=== PATIENT | female | born 1980 | race Caucasian/White ===

== ENCOUNTER 2022-05-17 14:30 | Emergency (ER) | payer OTHER, SELFPAY ==
--- NOTE | ~2022-05-17 | XR_ITS ---
EXAM: XR foot RT min 3V DATE: 05/17/2022 14:52 HISTORY: right lateral foot pain. no injury . COMPARISON: None available. FINDINGS: Normal mineralization. No fracture or dislocation. No lytic or blastic lesion. Joint space s are maintained. No erosion or periosteal change. Soft tissues within normal limits. IMPRESSION: No acute osseous finding in the right foot. Reviewed, dictated and finalized at location K.
--- NOTE | 2022-05-17 14:39 | ED.EXTPRO ---
HPI - Extremity Problem General Chief complaint: Extremity Problem,Nontraumatic Stated complaint: request xray on right foot Time Seen by Provider: 05/17/22 14:40 Source: patient and RN notes reviewed Mode of arrival: ambulatory Limitations: no limitations History of Present Illness HPI Narrative: 41-year-old female presents to the [facility] with complaints of right lateral foot pain for over a year. Had recently seen a nitroglycerin neutralizer, received cortisone shot February 2022. States she had several weeks of pain relief. States that she was offered an MRI but they wanted to try the cortisone shot first. States she can only wear sandals or flip-flops because sneakers make her feet hurt. No bruising or swelling noted. Denies any trauma. Positive pedal pulse. Capillary refill under 2 seconds. Full range of motion of the toes. Pain with walking to the lateral aspect along the fifth metatarsal Onset (ago): month(s) Related Data Home Medications Medication Instructions Recorded Confirmed desogestrel 0.15 mg-ethinyl 1 tablet PO DAILY 05/17/22 05/17/22 estradiol 0.03 mg tablet omeprazole 40 mg capsule,delayed 40 mg PO DAILY 05/17/22 05/17/22 release venlafaxine 75 mg capsule,extended 75 mg PO DAILY 05/17/22 05/17/22 release 24 hr Allergies Allergy/AdvReac Type Severity Reaction Status Date / Time No Known Allergies Allergy Unverified 05/17/22 14:53 Review of Systems Review of Systems: All systems reviewed & are unremarkable except as noted in HPI and below Constitutional: Constitutional: Reports no additional constitutional complaints, Denies chills and Denies fever(s) Eyes: Eyes: Reports no additional eye complaints ENT: Reports system reviewed and no additional complaints, except as documented Cardiovascular: Cardiovascular: Reports no additional cardiovascular complaints Respiratory: Respiratory: Reports no additional respiratory complaints Gastrointestinal: Gastrointestinal: Reports no additional gastrointestinal complaints Musculoskeletal: Musculoskeletal: Reports as per HPI (Right lateral foot pain) Integumentary/Breasts: Skin/Breast: Reports system reviewed and no additional complaints, except as docu Neurologic: Reports system reviewed and no additional complaints, except as documented Psychiatric: Psychiatric: Reports no additional psychiatric complaints Allergic/Immunologic: Allergic/Immunologic: Reports no additional allergic/immunologic complaints [facility] Past Medical History Medical History (Updated 05/17/22 @ 15:10 by Patt Callejas APRN) Anxiety and depression H/O gastroesophageal reflux (GERD) Social History Social History (Updated 05/17/22 @ 15:11 by Patt Callejas APRN) Living arrangements: with family Occupation/Education: occupation Additional occupation/education comments: Teacher Gender identity (if verbalized by the patient): Female Comments At the time of my signature, I reviewed and agree with the nursing past medical, surgical, social, and family history. There is no relevant family history pertinent to the patient complaint. Exam Const: General: healthy appearing, no acute distress and alert Nutritional Appearance: well nourished Orientation/consciousness: patient oriented x3 Limitations: no limitations HENMT: Head: normal to inspection Ears: external ears normal General nose exam: Normal external nose present Mouth: Yes Normal oral and palatal mucosa present and Yes lip normal Eyes: General: appearance normal, both eyes and all related structures Pupils: Equal, round and reactive pupils present Neck: Neck: normal visual inspection, no lymphadenopathy and no meningeal signs Chest: Chest palpation & inspection: normal inspection of the chest Resp: Effort & Inspection: normal respiratory effort and no use of accessory muscles Auscultation: clear to auscultation bilaterally Cardio: Rate: regular rate Rhythm: regular rhythm Back/Spine/Pelvis: Cervical
[2022-05-17 14:45] VITALS: BP 131/97; PULSE 99; RESP 16; TEMP 37.2; O2SAT 99
== END 2022-05-17 15:09 | disposition home or self-care (01) ==
PROVIDERS: Emergency Provider Nurse Practitioner; PCP Internal Medicine
DX: M79.671 Pain in right foot (principal); K21.9 Gastro-esophageal reflux disease without esophagitis; F41.9 Anxiety disorder, unspecified; F32.A Depression, unspecified
CPT/HCPCS: 73630; 99203; G0463

== ENCOUNTER 2024-01-27 19:45 | Emergency (ER) | payer OTHER, SELFPAY ==
[2024-01-27 20:05] VITALS: BP 126/81; PULSE 82; RESP 18; TEMP 37.2; O2SAT 98
--- NOTE | 2024-01-27 20:08 | ED.URI ---
HPI - URI/Sore Throat General Chief Complaint: Upper Respiratory Infection Stated Complaint: Sore Throat Time Seen by Provider: 01/27/24 20:08 Source: patient Mode of arrival: ambulatory Limitations: no limitations History of Present Illness HPI Narrative: 43-year-old female presents with complaint of nasal congestion, postnasal drainage, sore throat for 5 days. Afebrile. Patient concerned for strep throat but states throat is normally worse with fever when she has strep. Does not understand why her throat hurts. Sore throat is worse in the morning a and at night. Reports hacking of drainage in the mornings. Not taking any furw-erb-mtyklap medications to treat her symptoms. All systems reviewed and negative except as noted above. Related Data Home Medications Medication Instructions Recorded Confirmed omeprazole 40 mg capsule,delayed 40 mg PO DAILY 05/17/22 01/27/24 release venlafaxine 75 mg capsule,extended 75 mg PO DAILY 05/17/22 01/27/24 release 24 hr Allergies Allergy/AdvReac Type Severity Reaction Status Date / Time No Known Allergies Allergy Verified 01/27/24 19:51 Review of Systems Review of Systems: CONSTITUTIONAL: Denies fever, chills, or sweats. EYES: Denies visual changes, redness, or discharge. ENT: Reports rhinorrhea, congestion, sore throat. Denies otalgia. CARDIOVASCULAR: Denies chest pain, palpitations, or edema. RESPIRATORY: Denies cough or dyspnea. GASTROINTESTINAL: Denies abdominal pain, nausea, vomiting, or diarrhea. GENITOURINARY: Denies dysuria or hematuria. SKIN: Denies rash or itching. MUSCULOSKELETAL: Denies back pain, joint pain, or myalgia. NEUROLOGIC: Denies headache, numbness, or weakness. PSYCHIATRIC: Denies anxiety or depression. All other systems reviewed are negative, except as documented in HPI. [facility] Past Medical History Medical History Anxiety Anxiety and depression GERD (gastroesophageal reflux disease) History of abnormal cervical Papanicolaou smear Surgical History Surgical History History of colposcopy History of cryosurgery Family History Family History Other Asthma Cerebrovascular accident Diabetes mellitus Social History Social History Smoking status: Never smoker Alcohol intake: never Substance use: never Substance use type: does not use Lack of Transportation: No Lack of Food: Never True Current Housing: I Have Housing Concerned About Future Housing: No Difficulty Paying Gas/Electric Bills: No Difficulty Paying for Meds: No Currently Unemployed: No Education: Bachelor's Degree Living arrangements: with family Occupation/Education: occupation Additional occupation/education comments: Teacher Gender identity (if verbalized by the patient): Female Comments At time of signature, agree with nursing past medical, surgical, social and family history. There is no relevant family history pertinent to the presenting complaint. Exam Narrative: GENERAL: This is a well-nourished, well-developed patient, in no apparent distress. HEAD: normocephalic, atraumatic. EYES: PERRL. Sclera clear/white. Vision is grossly intact. EARS: External ears normal, auditory canals clear and without drainage, clear fluid bilateral TMs without Erythema or perforation. Hearing grossly intact. NOSE: External nose normal with mild nasal congestion with clear postnasal drainage. THROAT: Mucous membranes moist, Clear postnasal drainage with mild erythema. No swelling or exudates. NECK: Neck supple, non-tender without lymphadenopathy, masses or thyromegaly. CARDIOVASCULAR: Regular rate and rhythm without murmurs, gallops, or rubs. RESPIRATORY: Clear to auscultation. Breath sounds equal bilaterally. No wheezes,
== END 2024-01-27 20:20 | disposition home or self-care (01) ==
PROVIDERS: Emergency Provider Nurse Practitioner Family; PCP Internal Medicine
DX: J30.9 Allergic rhinitis, unspecified (principal); K21.9 Gastro-esophageal reflux disease without esophagitis; F41.9 Anxiety disorder, unspecified; F32.A Depression, unspecified
CPT/HCPCS: 87081; 87880; 99213; G0463

== ENCOUNTER 2024-02-02 09:03 | Emergency (ER) | payer OTHER, SELFPAY ==
[2024-02-02 09:24] VITALS: BP 110/91; PULSE 79; RESP 16; TEMP 37.4; O2SAT 99
[2024-02-02 09:27] VITALS: BP 110/91; PULSE 79; RESP 16; TEMP 37.4; O2SAT 99
--- NOTE | 2024-02-02 09:56 | ED.EYEPROB ---
HPI - Eye Problem General Chief complaint: Eye Problems Stated complaint: Eye Problem Time Seen by Provider: 02/02/24 09:42 Source: patient, RN notes reviewed and old records reviewed Mode of arrival: ambulatory Limitations: no limitations History of Present Illness HPI Narrative: 43-year-old female to [facility] complaint bilateral eye discomfort, itching, yellow discharge for 5 days. Patient states she was seen last week at [facility]gent Care and diagnosed with allergies, placed on a steroid pack. 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 Patient any visual changes, fever. Related Data Home Medications Medication Instructions Recorded Confirmed omeprazole 40 mg capsule,delayed 40 mg PO DAILY 05/17/22 02/02/24 release venlafaxine 75 mg capsule,extended 75 mg PO DAILY 05/17/22 02/02/24 release 24 hr Allergies Allergy/AdvReac Type Severity Reaction Status Date / Time No Known Allergies Allergy Verified 01/27/24 19:51 Review of Systems Review of Systems: All systems reviewed & are unremarkable except as noted in HPI and below Constitutional: Constitutional: Reports no additional constitutional complaints Eyes: Eyes: Reports as per HPI, Denies blurry vision, Denies change in vision, Reports eye discharge ( Yellow per patient; bilateral), Reports irritation ( bilateral), Reports itchy eyes ( bilateral) and Reports photophobia ( bilateral) ENT: Reports system reviewed and no additional complaints, except as documented Cardiovascular: Cardiovascular: Reports no additional cardiovascular complaints, Denies chest pain and Denies dyspnea Respiratory: Respiratory: Reports no additional respiratory complaints, Denies cough and Denies dyspnea Musculoskeletal: Musculoskeletal: Reports no additional musculoskeletal complaints Neurologic: Reports system reviewed and no additional complaints, except as documented Psychiatric: Psychiatric: Reports no additional psychiatric complaints [facility] Past Medical History Medical History Anxiety Anxiety and depression GERD (gastroesophageal reflux disease) History of abnormal cervical Papanicolaou smear Surgical History Surgical History History of colposcopy History of cryosurgery Family History Family History Other Asthma Cerebrovascular accident Diabetes mellitus Social History Social History Smoking status: Never smoker Alcohol intake: never Substance use: never Substance use type: does not use Lack of Transportation: No Lack of Food: Never True Current Housing: I Have Housing Concerned About Future Housing: No Difficulty Paying Gas/Electric Bills: No Difficulty Paying for Meds: No Currently Unemployed: No Education: Bachelor's Degree Living arrangements: with family Occupation/Education: occupation Additional occupation/education comments: Teacher Gender identity (if verbalized by the patient): Female Comments At the time of my signature, I reviewed and agree with the nursing past medical, surgical, social, and family history. There is no relevant family history pertinent to the patient complaint. Exam Const: General: cooperative, healthy appearing, comfortable, no acute distress, alert and well nourished Nutritional Appearance: well nourished Orientation/consciousness: patient oriented x3 Limitations: no limitations HENMT: Head: normal to inspection Ears: external ears normal Face/Nose/Sinus: Normal external nose present, Normal nares present, normal facial exam, No erythema and No edema Face and sinus: normal facial exam, no erythema and no edema Mouth: Yes Normal oral and palatal mucosa presen
== END 2024-02-02 10:13 | disposition home or self-care (01) ==
PROVIDERS: Emergency Provider Nurse Practitioner Family; PCP Internal Medicine
DX: H10.9 Unspecified conjunctivitis (principal); K21.9 Gastro-esophageal reflux disease without esophagitis; F41.9 Anxiety disorder, unspecified; F32.A Depression, unspecified
CPT/HCPCS: 99213; G0463

== ENCOUNTER 2025-03-27 12:25 | Outpatient (CLI) | payer OTHER, SELFPAY ==
--- NOTE | ~2025-03-27 | MM_ITS ---
EXAMINATION: MM screening tiffanie BI w meri HISTORY: Screening TECHNIQUE: Craniocaudal and mediolateral oblique 3-D tomosynthesis images were obtained and synthetic 2-D images were generated. CAD analysis was submitted and interpreted. COMPARISON: No prior mammogram is available for comparison at this institution. BREAST PARENCHYMAL COMPOSITION: Dense: The breasts are heterogeneously dense, which may obscure small masses FINDINGS: There is a mass in the upper outer quadrant of the right breast, suspicious for pathologic lymph node. There is a focal asymmetry centrally in the left breast, middle third, on CC view. There is a small mass in the periareolar location of the left breast. IMPRESSION: 1. Bilateral breast masses and focal left breast asymmetry. 2. Comparison to previous outside mammograms recommended. BI-RADS Category 0: Incomplete: Needs additional imaging evaluation. Reviewed, dictated and finalized at location B.
--- OUTSIDE RECORDS SUMMARY | 2025-03-27 14:19 | XMS_ITS | Clinical Summary ---
Author Organization [facility] Address [address] [place] [address] Care Team Providers Care Adjunct Faculty For Medical Terminology Name Role Phone Tigist Bowles MD Primary Care Provider [phone]- [phone] Allergies No known active allergies Medications LORazepam (ATIVAN) 0.5 mg tablet take 1 Tablet by oral route 3 times every day as needed 40 0 6 Active Additional Information Patient not taking.Reported on 07/04/2017 venlafaxine XR (EFFEXOR XR) 75 mg 24 hr capsule take 1 capsule by oral route every day with food 30 11 6 Active omeprazole (PriLOSEC) 40 mg capsule TAKE 1 CAPSULE (40MG) BY ORAL ROUTE EVERY DAY BEFORE A MEAL 30 11 2 Active multivitamin capsule take 1 capsule by oral route every day 0 1 Active Additional Information Patient not taking.Reported on 03/15/2018 desogestrel-eth inyl estradiol (RECLIPSEN, 28,) 0.15-0.03 mg per tablet take 1 tablet by oral route every day 0 1 Active Active Problems Problem Noted Date Diagnosed Date Bronchitis 07/04/2017 Assessment & Plan (07/04/2017 2:29 PM CDT): Recommend humidification fluids and rest. Tylenol/ibuprofen prn fever. Take antibiotic as directed. Albuterol inhaler prn coughing fits, wheezing, chest congestion. Dose, use and potential side effects of medication discussed with patient. Patient verbalized understanding and is in agreement with the plan of care. Patient is to contact the office with any change in, worsening or non- improvement in condition. Gastroesophageal reflux disease 01/01/2016 Overview (01/21/2017): GERD (gastroesophageal reflux disease) Irritable bowel syndrome 07/18/2013 Overview (01/20/2017): IBS (irritable bowel syndrome) Surgical History Surgery Date Site/Laterality Comments OTHER SURGICAL HISTORY 10/17/2015 - 10/16/2016 anxiety : Medical Management Medical History Medical History Date Comments Gastroesophageal reflux disease GERD Anxiety disorder Anxiety Depression Depression Hx Other Medical hx of abnormal pap smears; Comments: ASCUS 1998 Hx Other Medical hx of syncope Hx Other Medical anxiety; Commen ts: ekg chest xray Family History Medical History Relation Name Comments Diabetes type II Father Diabetes me llitus type 2; Hyperlipidemia Father Hyperlipidemi a; living Hypertension Father Hypertension; l iving Migraines Mother Migraines; Other Mother Alive and well; /ibs; Esophageal cancer Mother's Brother Cancer -esophageal; Other Sister 2 Alive and well; Other Sister 3 ibs; Breast cancer Neg Hx Ovarian cancer Neg Hx Thyroid cancer Neg Hx Relation Name Status Comments Father Alive Mother Alive Mother's Brother Sister 1 Alive Sister 2 Sister 3 Social History Tobacco Use Types Packs/Day Years Used Date Smoking Tobacco: Never Smokeless Tobacco: Never Alcohol Use Standard Drinks/Week Comments Yes 0 (1 standard drink = 0.6 oz pur e alcohol) Comments No Sex and Gender Information Value Date Recorded Sex Assigned at Not on file 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 Gender Identity Not on file Sexual Orientation Not on file Obstetrics History Para Term AB IAB SAB Ectopic Multiple Livin g Live Births 3 3 3 Date Outcome GA Total Labor Labor/2nd/3rd Weight Sex Type Anes PTL Irlanda A1 A5 Name Clin Term Term Term Last Filed Vital Signs Vital Sign Reading Time Taken Comments Blood Pressure 106/64 03/15/2018 1:28 PM CDT Pulse 69 03/15/2018 1:28 PM CDT Temperature 36.7 C (98 F) 03/15/2018 1:28 PM CDT Respiratory Rate 16 03/15/2018 1:28 PM CDT Oxygen Saturation 99% 03/15/2018 1:28 PM CDT Inhaled Oxygen Concentration - - Weight 77.1 kg (170 lb) 05/21/2021 2:58 PM CDT Height 167.6 cm (5' 6) 07/07/2022 9:35 AM CDT Body Mass Index 27.44 05/22/2020 9:51 AM CDT Plan of Treatment Health Maintenance Due Date Last Done Comments Cervical Cancer Screening 1978 Colon Cancer Screening-Colonoscopy 1978 Hepatitis C Screening 1978 DTaP/Tdap/Td Vaccine (1 - Tdap) 1989 Hepatitis B Screening 1996 Regular Well Visit/Exam 18-64 1996 Depression Screening 03/15/2019 03/15/2018, 07/04/20 17 Breast Cancer Screening-Mammogram 01/24/2025 01/25/2024, 07/07/2022, 05/21/2021, Additional history exists Influenza Vaccine (Season Ended) 2025 07/02/2020 HPV Vaccines Aged Out No longer eligi ble based on patient's age to complete this topic Pneumococcal vaccine <65 Aged Out No longer eligible based on patient's age to complete this topic Procedures Procedure Name Priority Date/Time Associated Diagnosis Comments SCREENING MAMMOGRAM BILATERAL W ARNOLD Schedule Routine, Read Routine (OP Routine) 01/25/2024 8:49 AM CDT Screening mammogram, encounter for from Last 3 Months or Most Recently Relevant to Health Maintenance Results * Screening Mammogram Bilateral W Arnold (01/25/2024 8:49 AM CDT) Anatomical Region Laterality Modality Breast Bilateral Mammography 01/25/2024 8:57 AM CDT Impressions 01/25/2024 8:57 AM CDT There is no mammographic evidence of malignancy. A 1 year screening mammogram is recommended. BI-RADS: 1 - Negative. The patient has been or will be contacted. The patient will be entered into a reminder system with a target due date of 1 year for her next mammogram. Electronically signed by: Shaw Peters 01/25/2024 8:57 AM CDT EXAMINATION: SCREENING MAMMOGRAM BILATERAL W ARNOLD ORDERING HEALTHCARE PROVIDER: SELF SCREENING MAMMOGRAM HISTORY: Routine screening mammography. COMPARISON: 07/07/2022, 05/21/2021, 05/22/2020, 05/06/2020, 01/02/2019 TECHNIQUE: CC and MLO views of the bilateral breasts were obtained with digital technique using breast tomosynthesis with C view. Computer aided detection was utilized. FINDINGS: DENSITY: The tissue of the bilateral breasts is heterogeneously dense, which may obscure small masses. BREASTS: There are no suspicious masses, suspicious calcifications, or other suspicious findings in either breast. There has been no suspicious interval change. us Self Screening Mammogram IMG MAMMO PROCEDURES Fi nal Result from Last 3 Months or Most Recently Relevant to Health Maintenance Insurance [facility] [id number] [facility] [id number] Care Teams Adjunct Faculty For Medical Terminology Relationship Specialty Start Date End Date White, Tigist Shawn, MD PCP - General 01/14/17
--- OUTSIDE RECORDS SUMMARY | 2025-03-27 14:19 | XMS_ITS | Referral Summary ---
Author Organization [facility] Address [address] [place] [address] Care Team Providers Care Inspecting Machine Adjuster Name Role Phone Tigist Bowles MD Primary Care Provider [phone]- [phone] Allergies No known active allergies Medications LORazepam [...] 07/18/2013 Overview (01/20/2017): IBS (irritable bowel syndrome) Social History Tobacco Use Types Packs/Day Years Used Date Smoking Tobacco: Never Smokeless Tobacco: Never Alcohol Use Standard Drinks/Week Comments Yes 0 (1 standard drink = 0.6 oz pur e alcohol) Comments No Sex and Gender Information Value Date Recorded Sex Assigned at Not on file Legal Sex 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 Electronically signed by: Christina Haiens M.D. Narrative 01/25/2024 8:57 AM CDT EXAMINATION: SCREENING MAMMOGRAM [...] Most Recently Relevant to Health Maintenance Insurance [employer] [facility] [id number] [facility] [id number] Care Teams Inspecting Machine Adjuster Relationship Specialty Start Date End Date Tigist Bowles MD PCP - General 01/14/17
--- OUTSIDE RECORDS SUMMARY | 2025-03-27 14:20 | XMS_ITS | Encounter Summary ---
Author Organization [facility] Address [address] [place] [address] Phone Care Team Providers Care Damascener Name Role Phone Tigist Bowles MD Primary Care Provider [phone]- [phone] Encounter Details Date Type Department Care Team (Late st Contact Info) Description 03/15/2018 Orders Only [facility] ProviderTsering MD [address] [place] [id number] Social History Tobacco Use Types Packs/Day Years Used Date Smoking Tobacco: Never Smokeless Tobacco: Never Alcohol Use Standard Drinks/Week Comments Yes 0 (1 standard drink = 0.6 oz pur e alcohol) Comments Unknown Sex and Gender Information Value Date Recorded Sex Assigned at Not on file 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 Historical Provider LAB BLOOD ORDERABLES Mara l Result documented in this encounter Visit Diagnoses Not on filedocumented in this encounter Care Teams Damascener Relationship Specialty Start Date End Date Tigist Bowles MD PCP - General 01/14/17 documented as of this encounter
== END 2025-03-27 12:26 | disposition home or self-care (01) ==
LOC: CHSIMG 12:25
PROVIDERS: PCP Nurse Practitioner Family; Visit Provider Nurse Practitioner Family
DX: Z12.31 Encounter for screening mammogram for malignant neoplasm of breast (principal); R92.8 Other abnormal and inconclusive findings on diagnostic imaging of breast
CPT/HCPCS: 77063; 77067

== ENCOUNTER 2025-04-05 09:31 | Outpatient (CLI) | payer OTHER, SELFPAY ==
--- NOTE | ~2025-04-05 | MMUS_ITS ---
EXAMINATION: MM diagnostic tiffanie LT w meri, US breast LT complete HISTORY: Left breast. Focal left breast asymmetry. TECHNIQUE: Additional 3-D tomosynthesis images of the left breast were performed and synthetic 2-D im ages were generated. CAD analysis was submitted and interpreted. High resolution complete left breast ultrasound was performed. COMPARISON: Comparison to multiple prior studies sequentially, with oldest reviewed study dated 02/2021. BREAST PARENCHYMAL COMPOSITION: Dense: The breasts are heterogeneously dense, which may obscure small masses FINDINGS: MAMMOGRAPHIC FINDINGS: There are no suspicious masses, calcifications or architectural distortion in the left breast to sugg est malignancy. ULTRASOUND: Complete US of all 4 quadrants of the left breast/s and retroareolar region was reviewed. At 12:00, 4 cm from the nipple there is a 7 mm cyst. At 2:00, 2 cm from the nipple there is an 8 mm cyst. No fatou picious masses in the left breast to suggest malignancy. IMPRESSION: 1. No evidence for malignancy in the left breast. Benign findings. 2. Routine yearly screening mammogram and regular clinical breast examination are recommended. BI-RADS Category 2: Benign finding(s). Reviewed, dictated and finalized at location A. IMPRESSION: 1. No evidence for malignancy in the left breast. Benign findings. 2. Routine yearly screening mammogram and regular clinical breast examination a re recommended. BI-RADS Category 2: Benign finding(s).
== END 2025-04-05 09:32 | disposition home or self-care (01) ==
LOC: CHSIMG 09:31
PROVIDERS: PCP Nurse Practitioner Family; Visit Provider Nurse Practitioner Family
DX: R92.8 Other abnormal and inconclusive findings on diagnostic imaging of breast (principal)
CPT/HCPCS: 76641; 77061; 77065; G0279